=== PATIENT | male | born 1995 | race Caucasian/White ===

== ENCOUNTER 2018-08-29 09:29 | Emergency (ER) | payer OTHER ==
[2018-08-29] MEDS ORDERED: LIDOCAINE HCL 1% 20 ML VIAL ONE (09:51)
[2018-08-29] MEDS ORDERED: OCTYL 2-CYANOACRYLATE 1 EACH TP ONE ×2 (10:12→10:20)
== END 2018-08-29 10:44 | disposition home or self-care (01) ==
LOC: EDH 09:29
DX: S61.216A Laceration without foreign body of right little finger without damage to nail, initial encounter (principal); S61.212A Laceration without foreign body of right middle finger without damage to nail, initial encounter; Z87.891 Personal history of nicotine dependence; W51.XXXA Accidental striking against or bumped into by another person, initial encounter; Y93.89 Activity, other specified; Y92.89 Other specified places as the place of occurrence of the external cause; Y99.8 Other external cause status
CPT/HCPCS: 12042; 73130